=== PATIENT | male | born 1965 | race American Indian/Alaskan Native ===

== ENCOUNTER 2019-07-15 13:39 | Emergency (ER) | payer OTHER ==
[2019-07-15 14:59] VITALS: BP 121/77
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
== END 2019-07-15 16:55 | disposition left against medical advice (07) ==
LOC: ED 13:39
DX: R51 Headache (principal); R22.0 Localized swelling, mass and lump, head
CPT/HCPCS: 99281